=== PATIENT | male | born 1965 | race American Indian/Alaskan Native ===

== ENCOUNTER 2016-12-05 15:21 | Inpatient (IN) | payer OTHER ==
--- NOTE | 2016-12-05 15:37 | Emergency Department Report ---
Entered by YAHAIRA PARKINSON, acting as scribe for ASHWIN FLORES NP. Chief Complaint: Chest Pain Stated Complaint: CHEST PIAN/NUMBNESS LT LEG Time Seen by Provider: 12/05/16 15:27 - HPI History of Present Illness: 51 y/o male presents with chest pain that started at noon today while he was walking and has improved since onset. Pt notes he has had previous episodes of similar pain last year, which he was treated here for. Pt states he had chest pain associated with a stroke 5 years ago. Medication taken includes lisinopril but he ran out last week, per pt. Sx include left leg numbness, light headedness and pain but pt denies left leg weakness, SOB, nausea. - ROS Review of Systems: +left leg pain +left leg numbness +light headedness +chest pain -SOB - weakness - nausea - Exam Vital Signs: Vital Signs 12/05/16 15:28 Temperature 98.6 F Pulse Rate 66 Respiratory 16 Rate Blood Pressure 152/102 O2 Sat by Pulse 99 Oximetry Physical Exam: a and o x4, steady gait, no focal weakness MSE screening note: Focused history and physical exam performed. Due to findings the following was ordered: ekg, labs, ct, xr ED Disposition for MSE Condition: Stable This documentation as recorded by the scribeTESHA RYAN,accurately reflects the service I personally performed and the decisions made by MARK schneider TRACY M, NP.
[2016-12-05 15:55] LABS: Basophils % (Auto) 1.1 % (0.0-1.8); Eosinophils % (Auto) 2.8 % (0.0-4.3); Hemoglobin 15.2 gm/dl (11.8-15.2); Mean Corpuscular HGB Conc 33 % (32-34); Mean Corpuscular Hemoglobin 31 pg (28-32); Mean Corpuscular Volume 94 fl (84-94); Platelet Count 224 K/mm3 (140-440); Red Blood Count 4.89 M/mm3 (3.65-5.03); Red Cell Distribution Width 13.4 % (13.2-15.2); White Blood Count 3.3 K/mm3 (4.5-11.0)
[2016-12-05 16:06] LABS: Partial Thromboplastin Time 32.6 Sec. (24.2-36.6)
[2016-12-05 16:21] LABS: Alanine Aminotransferase 17 units/L (7-56); Albumin 4.2 g/dL (3.9-5); Albumin/Globulin Ratio 1.2 %; Alkaline Phosphatase 67 units/L (35-129); Anion Gap 17 mmol/L; BUN/Creatinine Ratio 16.25; Blood Urea Nitrogen 13 mg/dL (9-20); Carbon Dioxide 27 mmol/L (22-30); Chloride 101.2 mmol/L (98-107); Glucose 87 mg/dL (75-100); Potassium 4.8 mmol/L (3.6-5.0); Sodium 140 mmol/L (137-145); Total Protein 7.7 g/dL (6.3-8.2)
--- NOTE | 2016-12-05 16:22 | Cat Scan Report ---
Cranial CT without contrast. History: Lightheadedness. Findings: There is no evidence of acute hemorrhage or infarct. A well-circumscribed hypodensity in the medial aspect of the right occipital lobe is unchanged compared to a previous similar study on May 25, 2015. This is consistent with an old infarct and is unchanged. The ventricles are normal. There are no masses or extra-axial collections. The posterior fossa is normal. The calvarium is intact. There is opacification of the left posterior ethmoid air cell, also unchanged. Impression: No acute findings or interval changes since May 2015. A chronic right occipital infarct is stable.
--- NOTE | 2016-12-05 16:29 | XRay Report ---
Chest 2 views. History: Chest pain. Findings: The heart and lungs reveal no acute or significant abnormalities. Tiny granulomas in the lower lobes are stable. Impression: No acute findings.
[2016-12-05 23:09] LABS: Anion Gap 18 mmol/L; BUN/Creatinine Ratio 18.57; Blood Urea Nitrogen 13 mg/dL (9-20); Calcium 8.9 mg/dL (8.4-10.2); Carbon Dioxide 22 mmol/L (22-30); Chloride 99.4 mmol/L (98-107); Glucose 115 mg/dL (75-100); Potassium 3.8 mmol/L (3.6-5.0); Sodium 136 mmol/L (137-145)
[2016-12-05 23:10] LABS: Creatine Kinase MB 4.6 ng/mL (0.0-4.0)
[2016-12-05 23:12] LABS: Creatine Kinase 245 units/L (55-170)
[2016-12-06] MEDS ORDERED: ASPIRIN PO ONE (00:59)
[2016-12-06] MEDS ORDERED: NITRO-BID 2% TP ONE (00:59)
--- NOTE | 2016-12-06 01:00 | Emergency Department Report ---
HPI - General Chief Complaint: Chest Pain Time Seen by Provider: 12/05/16 15:27 - HPI HPI: Room 26 The patient is a 51-year-old male presenting with a chief complaint of chest pain and left lower extremity numbness weakness. The patient states today at approximately noon while walking he developed numbness and weakness in his left lower extremity causing him to stumble. The patient states shortly afterwards he developed substernal chest pain that was sharp and intermittent in nature. The patient admits to intermittent substernal chest pain for approximately 2-3 months but has not sought medical attention. Patient denies shortness of breath , nausea/vomiting or diaphoresis with this chest pain. The patient states his last stress test occurred in 2015 and he believes he may have had a cardiac catheterization in 2011 Location: [see above] Duration: Intermittent since Noon Quality: Weakness, sharp Severity: Moderate Modifying factors: [see above] Context: [see above] Mode of transportation: [not driving] ED Past Medical Hx - Past Medical History Previous Medical History?: Yes Hx Hypertension: Yes Hx CVA: Yes (2011) Hx Asthma: Yes Additional medical history: hyperlipidemia - Surgical History Past Surgical History?: Yes Additional Surgical History: Rt. Hand Surgery. Cyst removed from groin - Family History Family history: no significant - Social History Smoking Status: Never Smoker Substance Use Type: None (denies illicit drug use), Alcohol (occasional) - Medications Home Medications: Home Medications Medication Instructions Recorded Confirmed Last Taken Type Lisinopril [Zestril TAB] 10 mg PO DAILY 05/25/15 12/06/16 11/29/16 History ED Review of Systems ROS: Stated complaint: CHEST PIAN/NUMBNESS LT LEG Other details as noted in HPI Comment: All other systems reviewed and negative Constitutional: denies: chills, diaphoresis, fever Eyes: denies: eye pain, eye discharge, vision change ENT: denies: ear pain, throat pain Respiratory: denies: cough, shortness of breath, wheezing Cardiovascular: chest pain Endocrine: no symptoms reported Gastrointestinal: denies: abdominal pain, nausea, diarrhea Genitourinary: denies: urgency, dysuria Musculoskeletal: denies: back pain, joint swelling, arthralgia Skin: denies: rash, lesions Neurological: weakness, paresthesias Psychiatric: denies: anxiety, depression Hematological/Lymphatic: denies: easy bleeding, easy bruising Physical Exam - Physical Exam Vital Signs: Vital Signs 12/05/16 12/05/16 12/06/16 15:28 22:26 00:16 Temperature 98.6 F 97.6 F Pulse Rate 66 69 59 L Respiratory 16 18 16 Rate Blood Pressure 152/102 144/102 Blood Pressure [Left] O2 Sat by Pulse 99 Oximetry 12/06/16 00:24 Temperature Pulse Rate Respiratory Rate Blood Pressure Blood Pressure 144/101 [Left] O2 Sat by Pulse Oximetry Physical Exam: GENERAL: The patient is well-developed well-nourished male lying on stretcher not appearing to be in acute distress. [] HEENT: Normocephalic. Atraumatic. Extraocular motions are intact. Patient has moist mucous membranes. NECK: Supple. No meningitic signs are noted. There is no adenopathy noted. CHEST/LUNGS: Clear to auscultation. There is no respiratory distress noted. HEART/CARDIOVASCULAR: Regular. There is no tachycardia. There is no gallop rub or murmur. ABDOMEN: Abdomen is soft, nontender. Patient has normal bowel sounds. There is no abdominal distention. SKIN: There is no rash. There is no edema. There is no diaphoresis. NEURO: The patient is awake, alert, and oriented. The patient is cooperative. The patient has no focal neurologic deficits. The patient has normal speech and gait. MUSCULOSKELETAL: There is no tenderness or deformity. There is no limitation range of motion. There is no evidence of acute injury. ED Course Vital Signs 12/05/16 12/05/16 12/06/16 15:28 22:26 00:16 Temperature 98.6 F 97.6 F Pulse Rate 66 69 59 L Respiratory 16 18 16 Rate Blood Pressure 152/102 144/102 Blood Pressure [Left] O2 Sat by Pulse 99 Oximetry 12/06/16 00:24 Temperature Pulse Rate Respiratory Rate Blood Pressure Blood Pressure 144/101 [Left] O2 Sat by Pulse Oximetry ED Medical Decision Making - Lab Data Result diagrams: 12/05/16 15:39 12/05/16 22:29 Laboratory Tests 12/05/16 12/05/16 12/05/16 15:39 15:39 15:44 WBC 3.3 L RBC 4.89 Hgb 15.2 Hct 46.0 H MCV 94 MCH 31 MCHC 33 RDW 13.4 Plt Count 224 Lymph % (Auto) 43.9 H Gaines % (Auto) 9.3 H Eos % (Auto) 2.8 Baso % (Auto) 1.1 Lymph # 1.5 Gaines # 0.3 Eos # 0.1 Baso # 0.0 Seg Neutrophils % 42.9 Seg Neutrophils # 1.4 L PT 13.7 INR 1.00 APTT 32.6 Thrombin Time 16.3 Sodium Potassium Chloride Carbon Dioxide Anion Gap BUN Creatinine Estimated GFR BUN/Creatinine Ratio Glucose Calcium Magnesium Total Bilirubin AST ALT Alkaline Phosphatase Total Creatine Kinase 268 H CK-MB (CK-2) 5.0 H CK-MB (CK-2) Rel Index 1.8 Troponin T Total Protein Albumin Albumin/Globulin Ratio 12/05/16 12/05/16 12/05/16 15:44 22:24 22:29 WBC RBC Hgb Hct MCV MCH MCHC RDW Plt Count Lymph % (Auto) Gaines % (Auto) Eos % (Auto) Baso % (Auto) Lymph # Gaines # Eos # Baso # Seg Neutrophils % Seg Neutrophils # PT INR APTT Thrombin Time Sodium 136 L Potassium 3.8 D Chloride 99.4 Carbon Dioxide 27 22 Anion Gap 17 18 BUN 13 13 Creatinine 0.8 0.7 L Estimated GFR > 60 > 60 BUN/Creatinine Ratio 16.25 18.57 Glucose 87 115 H Calcium 9.0 8.9 Magnesium 1.90 Total Bilirubin 0.30 AST 19 ALT 17 Alkaline Phosphatase 67 Total Creatine Kinase 245 H CK-MB (CK-2) 4.6 H CK-MB (CK-2) Rel Index 1.8 Troponin T < 0.010 < 0.010 Total Protein 7.7 Albumin 4.2 Albumin/Globulin Ratio 1.2 - EKG Data -: EKG Interpreted by Me EKG shows normal: sinus rhythm Rate: normal - EKG Data When compared to previous EKG there are: previous EKG unavailable Interpretation: nonspecific ST-T wave keiko ([place] in lead 3. Peaked T waves in leads V2 through V6) - Radiology Data Radiology results: report reviewed (CT head), image reviewed (chest x-ray, CT head) interpreted by me: Chest x-ray-no focal infiltrates, no pneumothorax CT head (read by radiologist)-no acute findings or interval changes since May 2015. A chronic right occipital infarct is stable. - Differential Diagnosis TIA, CVA, ACS, GERD, pericarditis Critical care attestation.: If time is entered above; I have spent that time in minutes in the direct care of this critically ill patient, excluding procedure time. ED Disposition Clinical Impression: Chest pain, Left leg numbness Disposition: OP ADMIT IP TO THIS HOSP Is pt being admited?: Yes Does the pt Need Aspirin: Yes Condition: Fair Instructions: Chest Pain (ED) Referrals: PRIMARY CARE, [Primary Care Provider] - 3-5 Days Time of Disposition: 01:01 (hospitalist paged)
[2016-12-06] MEDS ORDERED: XOPENEX IH ONE (01:23)
[2016-12-06] MEDS ORDERED: ZOFRAN IV PRN (02:41)
[2016-12-06] MEDS ORDERED: TYLENOL PO PRN (02:41)
[2016-12-06] MEDS ORDERED: NITROSTAT SL PRN (02:43)
[2016-12-06] MEDS: NITRO-BID 2% TP SCH ×4 (06:10→19:20)
--- NOTE | 2016-12-06 06:14 | History and Physical Report ---
CHIEF COMPLAINT: Chest pain. Other complaint includes numbness in the left lower extremity. HISTORY OF PRESENT ILLNESS: The patient is a 51-year-old male who said he was having retrosternal chest pain that started while he was walking. He also said he developed some funny feeling in the left lower extremity that appears as heaviness and numbness, which made him stumble. The patient said that the chest pain is intermittent in nature and said that this intermittent chest pain has been going on for 2 to 3 months, which occurred within few hours prior to presentation. There was no history of shortness of breath. No history of nausea, vomiting or diaphoresis. There was also no history of dizziness or numbness in the upper extremity. There was no history of speech disturbances. The patient stated that the swelling in the legs stopped and resolved on its own. PAST MEDICAL HISTORY: Pertinent for hypertension, cerebrovascular accident, asthma, hyperlipidemia. PAST SURGICAL HISTORY: Pertinent for right hand surgery, cyst removal from the groin. FAMILY HISTORY: Noncontributory. SOCIAL HISTORY: The patient does not smoke, drinks alcohol occasionally and does not use illicit drugs. MEDICATIONS: The patient is on lisinopril 10 mg by mouth daily. ALLERGIES: THE PATIENT IS ALLERGIC TO MORPHINE. REVIEW OF SYSTEMS: CONSTITUTIONAL: There is no fever, no chills, no diaphoresis. HEENT: There is no headache or sore throat. CARDIOVASCULAR: Chest pain present. There is no orthopnea. RESPIRATORY: There is no shortness of breath or cough. GASTROINTESTINAL: There is no nausea, no vomiting, no abdominal pain, diarrhea or constipation. NEUROLOGICAL: Numbness in the left lower extremity is noted, weakness noted. There is no dizziness. No speech impairment. MUSCULOSKELETAL SYSTEM: There is no joint pain or swelling. DERMATOLOGICAL SYSTEM: There is no skin rash or itching. GENITOURINARY SYSTEM: There is no dysuria, hematuria, or flank pain. Rest of system review is normal. PHYSICAL EXAMINATION: GENERAL: At the time of exam, the patient was found to be alert, oriented x 3, not in acute distress. VITAL SIGNS: Shows normal temperature of 97.5 degrees Fahrenheit, pulse of 64, respirations 18, blood pressure 137/90, O2 sat of 94% on room air. HEENT: Showed pupils to be equal, round, reactive to light and accommodating. Extraocular muscles are intact. NECK: Supple with no JVD or carotid bruit. CARDIOVASCULAR: Showed normal first and second heart sounds with no gallops or murmur. RESPIRATORY SYSTEM: Show good air entry on both sides of the lung with no abnormal breath sounds. GASTROINTESTINAL SYSTEM: Show abdomen to be full, soft, nontender with no organomegaly or rigidity. NEUROLOGIC: Showed no focal deficits. MUSCULOSKELETAL SYSTEM: Show no joint swelling or tenderness. DERMATOLOGICAL SYSTEM: Show no skin rash. GENITOURINARY: Showing no costovertebral angle tenderness. PERTINENT LABORATORY DATA AND IMAGING STUDIES: The patient had CBC done that shows slight decrease in WBC of 3.1 with slightly elevated hematocrit of 46 and CBC differential showed elevated lymphocyte count of 43.9%. Coagulation studies came back unremarkable. Chemistry showed slightly decreased sodium of 136. Unremarkable renal function tests and elevated total CPK of 268 with elevated CK-MB of 5 and normal troponin. IMAGING STUDIES: The patient had a CT of the head done that shows no acute findings when compared to changes to 05/2015 and also there was chronic right occipital infarct, which is described as stable. The patient also had a chest x-ray done that shows no acute findings. DIAGNOSES: 1. Chest pain. 2. Numbness of the lower extremity. PLAN: The patient will be admitted to medical floor and we will have cardiac enzymes checked q, 6 hours x 2 more levels. The patient will have MRI of the brain without contrast done because of the left lower limb numbness. The patient's DVT prophylaxis will be through sequential compressive device. The patient will have Lexiscan stress test done this morning and will be on aspirin 325 mg by mouth daily. The patient will be on nitro paste 1 inch to anterior chest wall q.i.d. and will be on Zofran 4 mg IV q. 8 hours for nausea and vomiting. The patient will also be on Tylenol 650 mg by mouth every 4 hours for fever and headache and will be on oxygen by nasal cannula at 2 liters per minute. Further management of the patient's presentation will be dependent on result of the Lexiscan stress test and the MRI of the brain. The patient will also have carotid Doppler bilaterally done this morning. JOB# [id number] OCN/NTS MTDD
[2016-12-06 07:17] LABS: Creatine Kinase MB 3.6 ng/mL (0.0-4.0)
[2016-12-06 07:22] LABS: Creatine Kinase 198 units/L (55-170)
--- NOTE | 2016-12-06 11:06 | Magnetic Resonance Report ---
MRI BRAIN WITHOUT CONTRAST INDICATION: Numbness of left lower limb. COMPARISON: Yesterday's head CT. FINDINGS: Noncontrast multiplanar and multisequence MRI of the brain demonstrates normal ventricles and sulci without acute infarct, hemorrhage, mass effect or midline shift. No abnormal extra-axial masses or fluid collections. Normal major intracranial vascular flow voids. Normal posterior fossa structures with symmetric seventh and eighth nerve complexes. Symmetric, grossly unremarkable eye globes. Leftward nasal septal deviation and approximately 6 mm leftward nasal septal spur touching the nasal mucosa again noted. Left ethmoid air cells again opacified posteriorly. Extensive right mastoiditis as well. Clear remainder imaged paranasal sinuses and mastoid air cells. Cerebellar tonsils extend approximately 3-4 mm below the foramen magnum, not strictly meeting criteria for Chiari 1 malformation. Normal remainder midline structures. CONCLUSION: No acute intracranial MRI abnormality, though right mastoiditis, left posterior ethmoid sinusitis, leftward nasal septal deviation and spur and slightly low-lying cerebellar tonsils noted, as described. Thank you for the opportunity to participate in this patient's care.
[2016-12-06] MEDS: ASPIRIN PO SCH (11:51)
[2016-12-06 14:59] LABS: Creatine Kinase MB 3.6 ng/mL (0.0-4.0)
[2016-12-06 15:01] LABS: Creatine Kinase 181 units/L (55-170)
--- NOTE | 2016-12-06 15:23 | Discharge Summary ---
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 He underwent multiple test and acute coronary syndrome/CVA have been ruled out. Found to have hypertension and hyperlipidemia; counseled and started on appropriate treatment. Discharged in stable condition with PCP follow-up. Discharge diagnosis: 1. Atypical chest pain - possible secondary to GERD 2. Hypertension 3. Hyperlipidemia Disposition: DC-01 TO HOME OR SELFCARE Time spent for discharge: 35 min Core Measure Documentation - Palliative Care Palliative Care/ Comfort Measures: Not Applicable - Core Measures Any of the following diagnoses?: stroke, history only - Stroke Discharge Requirements Statin for LDL = or >70 mg/dl on DC: Yes Anticoag for atrial fib/atrial flutter: Not Applicable Antithrombotic for ischemic stroke: Yes Exam - Physical Exam Narrative exam: Seen and examined: - Constitutional Vitals: Temp Pulse Resp BP Pulse Ox 97.6 F 86 18 154/88 98 12/06/16 12:00 12/06/16 12:00 12/06/16 12:00 12/06/16 12:00 12/06/16 12:00 General appearance: Present: no acute distress - Neck Neck: Present: supple, normal ROM. Absent: masses or JVD - Respiratory Respiratory effort: normal Respiratory: bilateral: CTA, negative: rhonchi, wheezing - Cardiovascular Rhythm: regular Heart Sounds: Present: S1 & S2. Absent: systolic murmur - Extremities Extremities: no ischemia - Abdominal General gastrointestinal: Present: soft, non-tender, non-distended, normal bowel sounds - Neurologic Neurologic: CNII-XII intact, no focal deficits Plan Activity: advance as tolerated Diet: low cholesterol, low salt Follow up with: PRIMARY CARE, [Primary Care Provider] - 3-5 Days Forms: Work/School Release Form Prescriptions: AtorvaSTATin [Lipitor] 20 mg PO QHS #30 tab Aspirin EC [Aspirin Enteric Coated TAB] 81 mg PO QDAY #30 tablet. Famotidine [Pepcid] 20 mg PO BID #60 tablet Lisinopril [Zestril TAB] 10 mg PO DAILY #30 tablet
[2016-12-06] MEDS: ZESTRIL PO SCH (19:20)
--- NOTE | 2016-12-07 01:56 | Treadmill Report ---
INDICATION: Chest pain. FINDINGS: There is no scintigraphic evidence of myocardial ischemia. The left ventricle is normal in size and systolic function and left ventricular ejection fraction is measured at 50%. Normal wall motion and wall thickening is noted on gated imaging. CONCLUSION: Normal perfusion scan. JOB# [id number] DANIEL/MARIELA
[2016-12-07] MEDS: NITRO-BID 2% TP SCH ×2 (06:04→09:28)
[2016-12-07 07:00] VITALS: BP 141/89
[2016-12-07] MEDS: ZESTRIL PO SCH (09:28)
[2016-12-07] MEDS: ASPIRIN PO SCH (09:28)
[2016-12-07] MEDS ORDERED: PNEUMOVAX 23 IM ONE (12:00)
--- NOTE | 2016-12-12 10:04 | Vascular Lab Report ---
CAROTID DUPLEX STUDY: RIGHT PSVEDV CCA PROX:[id number] CCA DIST: 8317 ICA PROX: 7812 ICA MID: 6525 ICA DIST: 8638 ECA: 90 VERT: 44 10 LEFT PSVEDV CCA PROX:[id number] CCA DIST: 9325 ICA PROX: 7124 ICA MID: 8328 ICA DIST: 7032 ECA: 106 VERT: 58 15 REASON FOR EXAM: Limb numbness/weakness. COMMENTS ON THE RIGHT: Doppler frequency analysis is consistent with 16 to 49 percent diameter reduction of the internal carotid artery. Minimal amount of plaque is seen. The common carotid artery is patent. The external carotid artery is patent. The vertebral artery has antegrade flow. COMMENTS ON THE LEFT: Doppler frequency analysis is consistent with 16 to 49 percent diameter reduction of the internal carotid artery. Minimal amount of plaque is seen. The common carotid artery is patent. The external carotid artery is patent. The vertebral artery has antegrade flow. IMPRESSION: Less than 50% diameter reduction in the internal carotid arteries bilaterally. Consider repeat carotid artery duplex in 12 months.
== END 2016-12-07 13:23 | disposition home or self-care (01) | DRG 392 ==
LOC: ED 15:21 → 4A 12-06 01:07
PROVIDERS: ADMIT Internal Medicine; ATTEND Internal Medicine
DX: K21.9 Gastro-esophageal reflux disease without esophagitis (principal); R07.9 Chest pain, unspecified; R20.0 Anesthesia of skin; I10 Essential (primary) hypertension; E78.5 Hyperlipidemia, unspecified; Z88.6 Allergy status to analgesic agent; Z86.73 Personal history of transient ischemic attack (TIA), and cerebral infarction without residual deficits
CPT/HCPCS: 36415; 70450; 70551; 71020; 78452; 80048; 80053; 82550; 82553; 83735; 84484; 85025; 85610; 85670; 85730; 90732; 93005; 93010; 93017; 93880; 94640; A9270-GY; A9502

== ENCOUNTER 2018-06-11 08:03 | Emergency (ER) | payer OTHER ==
[2018-06-11] MEDS ORDERED: DELTASONE PO ONE (09:08)
[2018-06-11] MEDS ORDERED: ATROVENT IH ONE (09:08)
[2018-06-11] MEDS ORDERED: PROVENTIL IH ONE (09:08)
--- NOTE | 2018-06-11 09:25 | XRay Report ---
ROUTINE CHEST, TWO VIEWS: HISTORY: Cough. The trachea, heart, mediastinal contour, lung castañeda and bony thorax are unremarkable. Healed left posterior fifth rib fracture is noted. IMPRESSION: Unremarkable chest x-ray. No significant change since 12/05/16.
--- NOTE | 2018-06-11 09:32 | Emergency Department Report ---
- General Chief Complaint: Adult Asthma Stated Complaint: ASTHMA Time Seen by Provider: 06/11/18 09:08 Source: patient Mode of arrival: Ambulatory Limitations: No Limitations - History of Present Illness Initial Comments: 53-year-old male presents to ED with productive cough and wheezing for one week. Patient denies fever, chest pain. This has been using his inhaler and nebuliz er machine at home which provided some relief, but is still symptomatic. MD Complaint: cough -: week(s) (1) Consistency: intermittent Improves With: other (albuterol) Worsens With: activity Associated Symptoms: cough, shortness of breath. denies: fever, chills Treatments Prior to Arrival: other (albuterol) - Related Data Previous Rx's Medication Instructions Recorded Last Taken Type AtorvaSTATin [Lipitor] 20 mg PO QHS #30 tab 12/06/16 Unknown Rx Lisinopril [Zestril TAB] 10 mg PO DAILY #30 tablet 12/06/16 Unknown Rx Aspirin EC [Aspirin Enteric Coated 81 mg PO QDAY #30 tablet.dr 12/07/16 Unknown Rx TAB] Famotidine [Pepcid] 20 mg PO BID #60 tablet 12/07/16 Unknown Rx ALBUTEROL Inhaler(NF) [VENTOLIN 1 puff IH Q4HR PRN #1 inha 06/11/18 Unknown Rx Inhaler(NF)] Albuterol Sulfate [Albuterol 0.63% 0.63 mg IH TID PRN #90 vial 06/11/18 Unknown Rx NEBS] Benzonatate [Tessalon Perles] 100 mg PO Q8HR PRN #20 capsule 06/11/18 Unknown Rx Loratadine [Claritin] 10 mg PO DAILY #30 tablet 06/11/18 Unknown Rx predniSONE [Prednisone] 50 mg PO DAILY #5 tablet 06/11/18 Unknown Rx Allergies Allergy/AdvReac Type Severity Reaction Status Date / Time morphine Allergy Shortness Verified 06/11/18 08:05 of Breath ED Review of Systems ROS: Stated complaint: ASTHMA Other details as noted in HPI Comment: All other systems reviewed and negative Constitutional: denies: chills, fever Respiratory: cough, shortness of breath, wheezing Cardiovascular: denies: chest pain ED Past Medical Hx - Past Medical History Hx Hypertension: Yes Hx CVA: Yes (2011) Hx Diabetes: No Hx Arthritis: No Hx Asthma: Yes Additional medical history: hyperlipidemia - Surgical History Additional Surgical History: Rt. Hand Surgery. Cyst removed from groin - Social History Smoking Status: Never Smoker Substance Use Type: None - Medications Home Medications: Home Medications Medication Instructions Recorded Confirmed Last Taken Type AtorvaSTATin [Lipitor] 20 mg PO QHS #30 tab 12/06/16 Unknown Rx Lisinopril [Zestril TAB] 10 mg PO DAILY #30 tablet 12/06/16 Unknown Rx Aspirin EC [Aspirin Enteric Coated 81 mg PO QDAY #30 tablet.dr 12/07/16 Unknown Rx TAB] Famotidine [Pepcid] 20 mg PO BID #60 tablet 12/07/16 Unknown Rx ALBUTEROL Inhaler(NF) [VENTOLIN 1 puff IH Q4HR PRN #1 inha 06/11/18 Unknown Rx Inhaler(NF)] Albuterol Sulfate [Albuterol 0.63% 0.63 mg IH TID PRN #90 vial 06/11/18 Unknown Rx NEBS] Benzonatate [Tessalon Perles] 100 mg PO Q8HR PRN #20 capsule 06/11/18 Unknown Rx Loratadine [Claritin] 10 mg PO DAILY #30 tablet 06/11/18 Unknown Rx predniSONE [Prednisone] 50 mg PO DAILY #5 tablet 06/11/18 Unknown Rx ED Physical Exam - General Limitations: No Limitations General appearance: alert, in no apparent distress - Head Head exam: Present: atraumatic, normocephalic - Eye Eye exam: Present: normal appearance - ENT ENT exam: Present: mucous membranes moist - Neck Neck exam: Present: normal inspection - Respiratory Respiratory exam: Present: wheezes. Absent: respiratory distress - Cardiovascular Cardiovascular Exam: Present: regular rate, normal rhythm - GI/Abdominal GI/Abdominal exam: Present: soft. Absent: distended - Extremities Exam Extremities exam: Present: normal inspection. Absent: pedal edema, calf tenderness - Neurological Exam Neurological exam: Present: alert, oriented X3 - Psychiatric Psychiatric exam: Present: normal affect, normal mood - Skin Skin exam: Present: warm, dry, intact, normal color ED Course Vital Signs 06/11/18 08:07 Temperature 97.7 F Pulse Rate 74 Respiratory 18 Rate Blood Pressure 159/102 O2 Sat by Pulse 98 Oximetry ED Medical Decision Making - Radiology Data Radiology results: report reviewed, image reviewed - Medical Decision Making Wheezing improved w/ neb treatment. CXR negative. Will d/c home w/ rx for prednisone, albuterol inhaler and neblues. Return precautions given. Outpatient follow-up advised. - Differential Diagnosis asthma, seasonal allergies, pneumonia Critical care attestation.: If time is entered above; I have spent that time in minutes in the direct care of this critically ill patient, excluding procedure time. ED Disposition Clinical Impression: Asthma with acute exacerbation Disposition: TO HOME OR SELFCARE Is pt being admited?: No Condition: Stable Instructions: Asthma (ED) Prescriptions: ALBUTEROL Inhaler(NF) [VENTOLIN Inhaler(NF)] 1 puff IH Q4HR PRN #1 inha PRN Reason: Wheezing Albuterol Sulfate [Albuterol 0.63% NEBS] 0.63 mg IH TID PRN #90 vial PRN Reason: Wheezing Benzonatate [Tessalon Perles] 100 mg PO Q8HR PRN #20 capsule PRN Reason: Cough Loratadine [Claritin] 10 mg PO DAILY #30 tablet predniSONE [Prednisone] 50 mg PO DAILY #5 tablet Referrals: PRIMARY CARE, [Referring] - 3-5 Days [facility] [Provider Group] - 3-5 Days Time of Disposition: 10:06
[2018-06-11 10:51] VITALS: BP 150/96
== END 2018-06-11 10:49 | disposition home or self-care (01) ==
LOC: ED 08:03
DX: J45.901 Unspecified asthma with (acute) exacerbation (principal); I10 Essential (primary) hypertension; E78.5 Hyperlipidemia, unspecified; Z88.5 Allergy status to narcotic agent; Z79.82 Long term (current) use of aspirin
CPT/HCPCS: 71046; 94640; 99284; J7512

== ENCOUNTER 2018-11-21 21:04 | Emergency (ER) | payer OTHER ==
--- NOTE | 2018-11-21 21:08 | Emergency Department Report ---
Blank Doc - Documentation Documentation: This is a 53-year-odl male that presents with right knee pain. This initial assessment/diagnostic orders/clinical plan/treatment(s) is/are subject to change based on patient's health status, clinical progression and re- assessment by fellow clinical providers in the ED. Further treatment and workup at subsequent clinical providers discretion. Patient/guardians urged not to elope from the ED as their condition may be serious if not clinically assessed and managed. Initial orders include: 1- Patient sent to [facility] for further evaluation and treatment 2- xray
[2018-11-21 21:13] VITALS: BP 141/77
[2018-11-21] MEDS ORDERED: TORADOL IM ONE (21:49)
[2018-11-21] MEDS ORDERED: DELTASONE PO ONE (21:49)
--- NOTE | 2018-11-21 21:53 | Emergency Department Report ---
ED Lower Extremity HPI - General Chief Complaint: Extremity Injury, Lower Stated Complaint: RIGHT KNEE PAIN Time Seen by Provider: 11/21/18 21:08 Source: patient Mode of arrival: Ambulatory Limitations: No Limitations - History of Present Illness Initial Comments: This is a 53-year-odl male that presents with right knee pain. - Related Data Previous Rx's Medication Instructions Recorded Last Taken Type AtorvaSTATin [Lipitor] 20 mg PO QHS #30 tab 12/06/16 Unknown Rx Lisinopril [Zestril TAB] 10 mg PO DAILY #30 tablet 12/06/16 Unknown Rx Aspirin EC 81 mg PO QDAY #30 tablet. 12/07/16 Unknown Rx Famotidine [Pepcid] 20 mg PO BID #60 tablet 12/07/16 Unknown Rx ALBUTEROL Inhaler(NF) [VENTOLIN 1 puff IH Q4HR PRN #1 inha 06/11/18 Unknown Rx Inhaler(NF)] Albuterol Sulfate [Albuterol 0.63% 0.63 mg IH TID PRN #90 vial 06/11/18 Unknown Rx NEBS] Benzonatate [Tessalon Perles] 100 mg PO Q8HR PRN #20 capsule 06/11/18 Unknown Rx Loratadine [Claritin] 10 mg PO DAILY #30 tablet 06/11/18 Unknown Rx predniSONE [Prednisone] 50 mg PO DAILY #5 tablet 06/11/18 Unknown Rx Allergies Allergy/AdvReac Type Severity Reaction Status Date / Time morphine Allergy Shortness Verified 06/11/18 08:05 of Breath ED Review of Systems ROS: Stated complaint: RIGHT KNEE PAIN Other details as noted in HPI ED Past Medical Hx - Past Medical History Previous Medical History?: Yes Hx Hypertension: Yes Hx CVA: Yes (2011) Hx Diabetes: No Hx Arthritis: No Hx Asthma: Yes Additional medical history: hyperlipidemia - Surgical History Past Surgical History?: Yes Additional Surgical History: Rt. Hand Surgery. Cyst removed from groin - Social History Smoking Status: Never Smoker Substance Use Type: None - Medications Home Medications: Home Medications Medication Instructions Recorded Confirmed Last Taken Type AtorvaSTATin [Lipitor] 20 mg PO QHS #30 tab 12/06/16 Unknown Rx Lisinopril [Zestril TAB] 10 mg PO DAILY #30 tablet 12/06/16 Unknown Rx Aspirin EC 81 mg PO QDAY #30 tablet. 12/07/16 Unknown Rx Famotidine [Pepcid] 20 mg PO BID #60 tablet 12/07/16 Unknown Rx ALBUTEROL Inhaler(NF) [VENTOLIN 1 puff IH Q4HR PRN #1 inha 06/11/18 Unknown Rx Inhaler(NF)] Albuterol Sulfate [Albuterol 0.63% 0.63 mg IH TID PRN #90 vial 06/11/18 Unknown Rx NEBS] Benzonatate [Tessalon Perles] 100 mg PO Q8HR PRN #20 capsule 06/11/18 Unknown Rx Loratadine [Claritin] 10 mg PO DAILY #30 tablet 06/11/18 Unknown Rx predniSONE [Prednisone] 50 mg PO DAILY #5 tablet 06/11/18 Unknown Rx ED Physical Exam - General Limitations: No Limitations ED Course Vital Signs 11/21/18 21:09 Temperature 97.6 F Pulse Rate 73 Respiratory 18 Rate Blood Pressure 141/77 O2 Sat by Pulse 96 Oximetry Critical care attestation.: If time is entered above; I have spent that time in minutes in the direct care of this critically ill patient, excluding procedure time. ED Disposition Condition: Stable
--- NOTE | 2018-11-21 21:55 | XRay Report ---
RIGHT KNEE 3 VIEW(S) INDICATION / CLINICAL INFORMATION: knee pain which has worsened over the last 2 months. COMPARISON: None available. FINDINGS: BONES / JOINT(S): No acute fracture or subluxation. No significant arthritis. No significant joint ef fusion. SOFT TISSUES: No significant abnormality. ADDITIONAL FINDINGS: None. Signer Name: Lyly Nance MD Signed: 11/21/2018 9:51 PM Workstation Name: [id number]
--- NOTE | 2018-11-21 22:12 | Emergency Department Report ---
ED Lower Extremity HPI - General Chief Complaint: Extremity Injury, Lower Stated Complaint: RIGHT KNEE PAIN Time Seen by Provider: 11/21/18 21:08 Source: patient Mode of arrival: Ambulatory Limitations: No Limitations - History of Present Illness Initial Comments: This is a 53-year-odl male that presents with right knee pain. this is a chronic problem there has been no new fall injury or trauma, pt is described as 5/10 aching pain exacerbated by movement , pain relieved by rest. MD Complaint: knee injury Onset/Timin -: days(s), unknown (chronic for past 3 yrs ) Injury: Knee: Right Type of Injury: unknown Place: home Severity: moderate Severity scale (0 -10): 5 Improves With: nothing Worsens With: nothing Associated Symptoms: able to partially bear weight - Related Data Previous Rx's Medication Instructions Recorded Last Taken Type AtorvaSTATin [Lipitor] 20 mg PO QHS #30 tab 12/06/16 Unknown Rx Lisinopril [Zestril TAB] 10 mg PO DAILY #30 tablet 12/06/16 Unknown Rx Aspirin EC 81 mg PO QDAY #30 tablet.dr 12/07/16 Unknown Rx Famotidine [Pepcid] 20 mg PO BID #60 tablet 12/07/16 Unknown Rx ALBUTEROL Inhaler(NF) [VENTOLIN 1 puff IH Q4HR PRN #1 inha 06/11/18 Unknown Rx Inhaler(NF)] Albuterol Sulfate [Albuterol 0.63% 0.63 mg IH TID PRN #90 vial 06/11/18 Unknown Rx NEBS] Benzonatate [Tessalon Perles] 100 mg PO Q8HR PRN #20 capsule 06/11/18 Unknown Rx Loratadine [Claritin] 10 mg PO DAILY #30 tablet 06/11/18 Unknown Rx predniSONE [Prednisone] 50 mg PO DAILY #5 tablet 06/11/18 Unknown Rx Acetaminophen [Acetaminophen TAB] 1,000 mg PO Q6HR PRN #30 tablet 11/21/18 Unknown Rx Diclofenac 1% [Diclofenac 1% 1 applicatio TP QID #1 tube 11/21/18 Unknown Rx topical gel] Allergies Allergy/AdvReac Type Severity Reaction Status Date / Time morphine Allergy Shortness Verified 06/11/18 08:05 of Breath ED Review of Systems ROS: Stated complaint: RIGHT KNEE PAIN Other details as noted in HPI Constitutional: denies: chills, fever Eyes: denies: eye pain, eye discharge, vision change ENT: denies: ear pain, throat pain Respiratory: denies: cough, shortness of breath, wheezing Cardiovascular: denies: chest pain, palpitations Endocrine: no symptoms reported Gastrointestinal: denies: abdominal pain, nausea, diarrhea Genitourinary: denies: urgency, dysuria Musculoskeletal: arthralgia, other (knee pain ) Skin: denies: rash, lesions Neurological: denies: headache, weakness, paresthesias Psychiatric: denies: anxiety, depression Hematological/Lymphatic: as per HPI ED Past Medical Hx - Past Medical History Previous Medical History?: Yes Hx Hypertension: Yes Hx CVA: Yes (2011) Hx Diabetes: No Hx Arthritis: No Hx Asthma: Yes Additional medical history: hyperlipidemia - Surgical History Past Surgical History?: Yes Additional Surgical History: Rt. Hand Surgery. Cyst removed from groin - Social History Smoking Status: Never Smoker Substance Use Type: None - Medications Home Medications: Home Medications Medication Instructions Recorded Confirmed Last Taken Type AtorvaSTATin [Lipitor] 20 mg PO QHS #30 tab 12/06/16 Unknown Rx Lisinopril [Zestril TAB] 10 mg PO DAILY #30 tablet 12/06/16 Unknown Rx Aspirin EC 81 mg PO QDAY #30 tablet. 12/07/16 Unknown Rx Famotidine [Pepcid] 20 mg PO BID #60 tablet 12/07/16 Unknown Rx ALBUTEROL Inhaler(NF) [VENTOLIN 1 puff IH Q4HR PRN #1 inha 06/11/18 Unknown Rx Inhaler(NF)] Albuterol Sulfate [Albuterol 0.63% 0.63 mg IH TID PRN #90 vial 06/11/18 Unknown Rx NEBS] Benzonatate [Tessalon Perles] 100 mg PO Q8HR PRN #20 capsule 06/11/18 Unknown Rx Loratadine [Claritin] 10 mg PO DAILY #30 tablet 06/11/18 Unknown Rx predniSONE [Prednisone] 50 mg PO DAILY #5 tablet 06/11/18 Unknown Rx Acetaminophen [Acetaminophen TAB] 1,000 mg PO Q6HR PRN #30 tablet 11/21/18 Unknown Rx Diclofenac 1% [Diclofenac 1% 1 applicatio TP QID #1 tube 11/21/18 Unknown Rx topical gel] ED Physical Exam - General Limitations: No Limitations General appearance: alert, in no apparent distress - Head Head exam: Present: atraumatic, normocephalic - Eye Eye exam: Present: normal appearance, PERRL, EOMI Pupils: Present: normal accommodation - ENT ENT exam: Present: mucous membranes moist - Neck Neck exam: Present: normal inspection - Respiratory Respiratory exam: Present: normal lung sounds bilaterally, chest wall tenderness. Absent: respiratory distress, wheezes, stridor - Cardiovascular Cardiovascular Exam: Present: regular rate, normal rhythm, normal heart sounds. Absent: systolic murmur, diastolic murmur, rubs, gallop - GI/Abdominal GI/Abdominal exam: Present: soft, normal bowel sounds. Absent: distended, tenderness, bruit, hernia - Rectal Rectal exam: Present: deferred - Extremities Exam Extremities exam: Present: normal inspection - Back Exam Back exam: Present: normal inspection, full ROM. Absent: tenderness, CVA tenderness (R), CVA tenderness (L), muscle spasm, paraspinal tenderness, ve rtebral tenderness, rash noted - Neurological Exam Neurological exam: Present: alert, oriented X3, CN II-XII intact, normal gait - Psychiatric Psychiatric exam: Present: normal affect, normal mood - Skin Skin exam: Present: warm, dry, intact, normal color. Absent: rash ED Course Vital Signs 11/21/18 21:09 Temperature 97.6 F Pulse Rate 73 Respiratory 18 Rate Blood Pressure 141/77 O2 Sat by Pulse 96 Oximetry ED Lower Extremity MDM - Radiology Data Radiology results: report reviewed, image reviewed Ordering Physician: LINDA GUEVARA NP Date of Service: 11/21/18 Procedure(s): XR knee 3V RT Accession Number(s): [id number] cc: LINDA GUEVARA NP Fluoro Time In Minutes: RIGHT KNEE 3 VIEW(S) INDICATION / CLINICAL INFORMATION: knee pain which has worsened over the last 2 months. COMPARISON: None available. FINDINGS: BONES / JOINT(S): No acute fracture or subluxation. No significant arthritis. No significant joint effusion. SOFT TISSUES: No significant abnormality. ADDITIONAL FINDINGS: None. Signer Name: Lyly Nance MD Signed: 11/21/2018 9:51 PM Workstation Name: [id number] Transcribed By: DT Dictated By: Rudi Nance MD Electronically Authenticated By: Rudi Nance MD Signed Date/Time: 11/21/182150 DD/ 49 TD/TT: - Medical Decision Making this is arthralgia of knee plan, diclofenac gel, tyelnol, follow up with pcp in 2-3 days return to emergency if symptoms worsen, follow up with pcp in 2-3 days. pt dc'd to home in stable condition at this time. Critical care attestation.: If time is entered above; I have spent that time in minutes in the direct care of this critically ill patient, excluding procedure time. ED Disposition Clinical Impression: Knee pain, chronic Qualifiers: Laterality: right Qualified Code(s): M25.561 - Pain in right knee; G89.29 - Other chronic pain Arthralgia Qualifiers: Joint pain location: knee Laterality: right Qualified Code(s): M25.561 - Pain in right knee Disposition: DC-01 TO HOME OR SELFCARE Is pt being admited?: No Does the pt Need Aspirin: No Condition: Stable Instructions: Arthralgia (ED), Knee Pain (ED), Knee Exercises (GEN) Prescriptions: Acetaminophen [Acetaminophen TAB] 1,000 mg PO Q6HR PRN #30 tablet PRN Reason: pain Diclofenac 1% [Diclofenac 1% topical gel] 1 applicatio TP QID #1 tube Referrals: DARBY VICTORIA MD [Primary Care Provider] - 3-5 Days Forms: Work/School Release Form(ED) Time of Disposition: 22:19
== END 2018-11-21 22:33 | disposition home or self-care (01) ==
LOC: ED 21:04
DX: M25.561 Pain in right knee (principal); G89.29 Other chronic pain; I10 Essential (primary) hypertension; J45.909 Unspecified asthma, uncomplicated; E78.5 Hyperlipidemia, unspecified; Z88.5 Allergy status to narcotic agent; Z79.82 Long term (current) use of aspirin; Z79.899 Other long term (current) drug therapy; Z86.73 Personal history of transient ischemic attack (TIA), and cerebral infarction without residual deficits; Z98.890 Other specified postprocedural states; X58.XXXA Exposure to other specified factors, initial encounter; Y93.89 Activity, other specified; Y92.098 Other place in other non-institutional residence as the place of occurrence of the external cause; Y99.8 Other external cause status
CPT/HCPCS: 73562; 96372; 99283; J1885; J7512

== ENCOUNTER 2019-03-21 16:54 | Emergency (ER) | payer OTHER ==
[2019-03-21 17:52] VITALS: BP 174/113
--- NOTE | 2019-03-21 17:52 | Event Note ---
ED Screening Note ED Screening Note: pt presents with right leg pain that began two weeks ago no fall or injury no numbness or weakness denies leg swelling PMHx asthma, HTN states he takes lisinopril, did not refill his medication allergy: morphine PCP: Dr. Garland has not called his PCP pt has chronic arthritis in the knee
--- NOTE | 2019-03-21 17:56 | Emergency Department Report ---
Chief Complaint: Extremity Injury, Lower Stated Complaint: RT THIGH PAIN Time Seen by Provider: 03/21/19 17:50 - HPI History of Present Illness: pt presents with right leg pain that began bothering him again two weeks ago pt has a hx of chronic arthritis in the right knee no fall or injury no numbness or weakness denies leg swelling pt was evaluated in the ED in november and had a normal XR of his knee at that time PMHx asthma, HTN states he takes lisinopril, did not refill his medication allergy: morphine PCP: Dr. Garland has not called his PCP on exam: FROM of the right hip, knee, and ankle without difficulty no edema present in the RLE neurovascularly intact no skin changes to indicate PVD or cellulitis Patient is presenting with a non-medical emergency at this time, medical screening exam performed pt has FROM of the RLE, no clinical s/sx of cellulitis, DVT, PVD, sprain or fx leg discomfort could be arthritis related will refer pt to an orthopedic doctor also advised pt to see his PCP to have his BP medication refilled, advised to take his BP three times a day, eat a low sodium diet, and incorporate daily exercise advised pt please follow up with an orthopedic doctor in the next 2-3 days. may take tylenol or ibuprofen. use ice pack, heating pad, rest, epsom salt bath, arthritis ointment. please follow up with your primary care doctor. please resume taking your blood pressure medication. return to the emergency room for any new or worsening symptoms. - Exam Vital Signs: Vital Signs 03/21/19 17:50 Temperature 98.5 F Pulse Rate 73 Respiratory 18 Rate Blood Pressure 174/113 O2 Sat by Pulse 98 Oximetry MSE screening note: Focused history and physical exam performed. ED Disposition for MSE Clinical Impression: Chronic pain of right lower extremity, Elevated blood pressure reading Disposition: DC-01 TO HOME OR SELFCARE Is pt being admited?: No Does the pt Need Aspirin: No Condition: Stable Instructions: Arthralgia (ED) Additional Instructions: please follow up with an orthopedic doctor in the next 2-3 days. may take tylenol or ibuprofen. use ice pack, heating pad, rest, epsom salt bath, arthritis ointment. please follow up with your primary care doctor. please resume taking your blood pressure medication. return to the emergency room for any new or worsening symptoms. Referrals: PETRONA CHATTERJEE MD [Staff Physician] - 2-3 Days [facility] [Provider Group] - 2-3 Days your, primary care doctor [Other] - 2-3 Days Time of Disposition: 18:00 Print Language: BELARUSIAN
== END 2019-03-21 18:30 | disposition home or self-care (01) ==
LOC: ED 16:54
DX: M79.604 Pain in right leg (principal); G89.29 Other chronic pain; I10 Essential (primary) hypertension; J45.909 Unspecified asthma, uncomplicated
CPT/HCPCS: 99281

== ENCOUNTER 2020-02-18 18:18 | Emergency (ER) | payer OTHER ==
--- NOTE | 2020-02-18 19:24 | Event Note ---
ED Screening Note ED Screening Note: LAZO that began today has been intermittently throughout the day BP 172/110 feels like tension "like a cap on the head" takes lisinopril 20 mg for BP no vision changes, no numbness, weakness no fever no n/v/d pmhx asthma allergy: morphine BP stable 147/104 s This initial assessment/diagnostic orders/clinical plan/treatment(s) is/are subject to change based on patients health status, clinical progression and re- assessment by fellow clinical providers in the ED. Further treatment and workup at subsequent clinical providers discretion. Patient/guardian urged not to elope from the ED as their condition may be serious if not clinically assessed and managed. Initial orders include: labs
[2020-02-18 20:00] LABS: Basophils % (Auto) 0.7 % (0.0-1.8); Eosinophils # (Auto) 0.1 K/mm3 (0.0-0.4); Eosinophils % (Auto) 1.8 % (0.0-4.3); Lymphocytes # (Auto) 1.4 K/mm3 (1.2-5.4); Lymphocytes % (Auto) 33.1 % (13.4-35.0); Mean Corpuscular HGB Conc 34 % (32-34); Mean Corpuscular Volume 96 fl (84-94); Monocytes # (Auto) 0.4 K/mm3 (0.0-0.8); Platelet Count 236 K/mm3 (140-440); Red Blood Count 4.68 M/mm3 (3.65-5.03); Red Cell Distribution Width 13.4 % (13.2-15.2)
[2020-02-18 20:17] LABS: Blood Urea Nitrogen 14 mg/dL (9-20); Calcium 9.5 mg/dL (8.4-10.2); Hemolysis Index 21
[2020-02-18 20:32] LABS: BUN/Creatinine Ratio 20
[2020-02-18 20:48] VITALS: BP 133/90
[2020-02-18] MEDS ORDERED: BUTALB/ACETAMINOPHEN/CAFFEINE TAB PO ONE (20:48)
--- NOTE | 2020-02-18 21:02 | Emergency Department Report ---
ED General Adult HPI - General Chief complaint: Headache Stated complaint: BLOOD PRESSURE PUI?: No Time Seen by Provider: 02/18/20 19:21 Source: patient Mode of arrival: Ambulatory Limitations: No Limitations - History of Present Illness Initial comments: 55-year-old male with past history of CVA and hypertension as well as asthma presents with chief complaint of headache, moderately severe, gradual onset earlier today. Not the worst headache of his life, not thunderclap, no nausea vomiting visual changes numbness or weakness. He states that he checked his blood pressure because he felt that it may be high and it was 170s over 110s at home and he states normally he is well controlled. He states that this prompted him to come in for evaluation because he was concerned due to his prior history of CVA. Denies any chest pain shortness of breath dizziness or any other complaints. Describes it as a tension type headache. No alleviating or exacerbating factors. Severity scale (0 -10): 0 - Related Data Previous Rx's Medication Instructions Recorded Last Taken Type AtorvaSTATin [Lipitor] 20 mg PO QHS #30 tab 12/06/16 Unknown Rx lisinopriL [Zestril TAB] 10 mg PO DAILY #30 tablet 12/06/16 Unknown Rx Aspirin EC [Halfprin EC] 81 mg PO QDAY #30 tablet. 12/07/16 Unknown Rx Famotidine [Pepcid] 20 mg PO BID #60 tablet 12/07/16 Unknown Rx ALBUTEROL Inhaler(NF) [VENTOLIN 1 puff IH Q4HR PRN #1 inha 06/11/18 Unknown Rx Inhaler(NF)] Albuterol Sulfate [Albuterol 0.63% 0.63 mg IH TID PRN #90 vial 06/11/18 Unknown Rx NEBS] Benzonatate [Tessalon Perles] 100 mg PO Q8HR PRN #20 capsule 06/11/18 Unknown Rx Loratadine (Nf) [Claritin] 10 mg PO DAILY #30 tablet 06/11/18 Unknown Rx predniSONE [Prednisone] 50 mg PO DAILY #5 tablet 06/11/18 Unknown Rx Acetaminophen [Acetaminophen TAB] 1,000 mg PO Q6HR PRN #30 tablet 11/21/18 Unknown Rx Diclofenac 1% [Diclofenac 1% 1 applicatio TP QID #1 tube 11/21/18 Unknown Rx topical gel] Allergies Allergy/AdvReac Type Severity Reaction Status Date / Time morphine Allergy Shortness Verified 03/21/19 16:57 of Breath ED Review of Systems ROS: Stated complaint: BLOOD PRESSURE Other details as noted in HPI Comment: All other systems reviewed and negative Neurological: as per HPI ED Past Medical Hx - Past Medical History Previous Medical History?: Yes Hx Hypertension: Yes Hx CVA: Yes (2011) Hx Diabetes: No Hx Arthritis: No Hx Asthma: Yes Additional medical history: hyperlipidemia - Surgical History Past Surgical History?: Yes Additional Surgical History: Rt. Hand Surgery. Cyst removed from groin - Social History Smoking Status: Never Smoker Substance Use Type: None - Medications Home Medications: Home Medications Medication Instructions Recorded Confirmed Last Taken Type AtorvaSTATin [Lipitor] 20 mg PO QHS #30 tab 12/06/16 Unknown Rx lisinopriL [Zestril TAB] 10 mg PO DAILY #30 tablet 12/06/16 Unknown Rx Aspirin EC [Halfprin EC] 81 mg PO QDAY #30 tablet.dr 12/07/16 Unknown Rx Famotidine [Pepcid] 20 mg PO BID #60 tablet 12/07/16 Unknown Rx ALBUTEROL Inhaler(NF) [VENTOLIN 1 puff IH Q4HR PRN #1 inha 06/11/18 Unknown Rx Inhaler(NF)] Albuterol Sulfate [Albuterol 0.63% 0.63 mg IH TID PRN #90 vial 06/11/18 Unknown Rx NEBS] Benzonatate [Tessalon Perles] 100 mg PO Q8HR PRN #20 capsule 06/11/18 Unknown Rx Loratadine (Nf) [Claritin] 10 mg PO DAILY #30 tablet 06/11/18 Unknown Rx predniSONE [Prednisone] 50 mg PO DAILY #5 tablet 06/11/18 Unknown Rx Acetaminophen [Acetaminophen TAB] 1,000 mg PO Q6HR PRN #30 tablet 11/21/18 Unknown Rx Diclofenac 1% [Diclofenac 1% 1 applicatio TP QID #1 tube 11/21/18 Unknown Rx topical gel] ED Physical Exam - General Limitations: No Limitations General appearance: alert, in no apparent distress - Head Head exam: Present: atraumatic, normocephalic - Eye Eye exam: Present: normal appearance - ENT ENT exam: Present: mucous membranes moist - Neck Neck exam: Present: normal inspection - Respiratory Respiratory exam: Present: normal lung sounds bilaterally. Absent: respiratory distress - Cardiovascular Cardiovascular Exam: Present: regular rate, normal rhythm. Absent: systolic murmur, diastolic murmur, rubs, gallop - GI/Abdominal GI/Abdominal exam: Present: soft, normal bowel sounds - Rectal Rectal exam: Present: deferred - Extremities Exam Extremities exam: Present: normal inspection - Back Exam Back exam: Present: normal inspection - Neurological Exam Neurological exam: Present: alert, oriented X3, CN II-XII intact, normal gait, reflexes normal. Absent: motor sensory deficit - Psychiatric Psychiatric exam: Present: normal affect, normal mood - Skin Skin exam: Present: warm, dry, intact, normal color. Absent: rash ED Course Vital Signs 02/18/20 02/18/20 02/18/20 18:24 19:23 20:47 Temperature 97.6 F Pulse Rate 76 71 64 Respiratory 14 16 16 Rate Blood Pressure 150/106 147/104 Blood Pressure 133/90 [Left] O2 Sat by Pulse 97 96 97 Oximetry ED Medical Decision Making - Lab Data Result diagrams: 02/18/20 19:27 02/18/20 19:27 - Medical Decision Making 55-year-old male presenting with headache, gradual onset earlier today associate with high blood pressure. His exam here is normal including a normal neurologic exam and his blood pressure is in the 130s over 90s. Differential diagnoses includes tension headache, migraine, rule out intracranial hemorrhage though seems less likely. We will give Fioricet and check CT head. Basic labs were also obtained in triage and are unremarkable. BP remained stable, CT negative, follow-up PCP with reading of blood pressure for determination if therapy changes are needed. - Differential Diagnosis tension headache, migraine, rule out intracranial hemorrhage Critical care attestation.: If time is entered above; I have spent that time in minutes in the direct care of this critically ill patient, excluding procedure time. ED Disposition Clinical Impression: Headache Qualifiers: Headache type: unspecified Headache chronicity pattern: acute headache Intractability: not intractable Qualified Code(s): R51.9 - Headache, unspecified Disposition: DC-01 TO HOME OR SELFCARE Is pt being admited?: No Condition: Good Instructions: Tension Headache, Adult Referrals: EVA RODRIGUEZ MD [Staff Physician] - 3-5 Days Time of Disposition: 21:42
[2020-02-18 21:03] LABS: Bilirubin,Urine NEG (Negative); Blood,Urine NEG (Negative); Color,Urine Yellow (Yellow); Mucus,Urine FEW /HPF; Protein,Urine <15 mg/dL mg/dL (Negative); Urobilinogen,Urine < 2.0 mg/dL (<2.0)
--- NOTE | 2020-02-18 21:37 | Cat Scan Report ---
CT BRAIN: 02/18/2020 INDICATION / CLINICAL INFORMATION: htn nesbitt. COMPARISON: None available. FINDINGS: BRAIN/INTRACRANIAL STRUCTURES: Unenhanced CT images of the brain demonstrate no evidence of acute int racranial abnormality. Ventricles and sulci are normal in size and shape. There is no evidence of acute ischemic injury, hemorrhage, or mass. There are no abnormal extra-axial fluid collections. EXTRACRANIAL STRUCTURES: Unremarkable. IMPRESSION: No acute abnormality. Negative unenhanced CT of the brain. All CT scans at this location are performed using dose reduction to ALARA by means of automated expos ure control. Signer Name: Gumaro Clark MD Signed: 02/18/2020 9:32 PM Workstation Name: [id number]
== END 2020-02-18 21:55 | disposition home or self-care (01) ==
LOC: ED 18:18
DX: R51.9 Headache, unspecified (principal); I10 Essential (primary) hypertension; J45.909 Unspecified asthma, uncomplicated; Z98.890 Other specified postprocedural states; Z86.73 Personal history of transient ischemic attack (TIA), and cerebral infarction without residual deficits; Z79.899 Other long term (current) drug therapy; Z88.8 Allergy status to other drugs, medicaments and biological substances
CPT/HCPCS: 36415; 70450; 80048; 81001; 85025